=== PATIENT | male | born 1965 | race American Indian/Alaskan Native ===

== ENCOUNTER 2016-10-26 21:35 | Emergency (ER) | payer MEDICAID, OTHER ==
[~2016-10-26] VITALS: Ht 170.2 cm; Wt 72.8 kg
[~2016-10-26 21:35] MED LIST: CITA10TA8 PO
[2016-10-26] MEDS ORDERED: HYDR25CA PO (21:46)
[2016-10-26 23:22] VITALS: BP 114/81
== END 2016-10-26 23:24 | disposition home or self-care (01) ==
LOC: ED 22:11
DX: S00.83XA Contusion of other part of head, initial encounter (principal); S00.33XA Contusion of nose, initial encounter; S00.531A Contusion of lip, initial encounter; F10.120 Alcohol abuse with intoxication, uncomplicated; W10.8XXA Fall (on) (from) other stairs and steps, initial encounter; Y93.89 Activity, other specified; Y92.098 Other place in other non-institutional residence as the place of occurrence of the external cause; Y99.8 Other external cause status
CPT/HCPCS: 70450; 70486; 72125; 99284

== ENCOUNTER 2017-05-04 02:04 | Emergency (ER) | payer MEDICAID ==
[~2017-05-04] VITALS: Ht 170.2 cm; Wt 70.0 kg
[~2017-05-04 02:04] MED LIST changes: +HYDR25CA PO
== END 2017-05-04 02:54 | disposition left against medical advice (07) ==
LOC: ED 02:38
DX: F10.129 Alcohol abuse with intoxication, unspecified (principal); Z53.21 Procedure and treatment not carried out due to patient leaving prior to being seen by health care provider

== ENCOUNTER 2017-10-18 05:51 | Emergency (ER) | payer MEDICAID ==
[~2017-10-18] VITALS: Ht 172.7 cm; Wt 78.0 kg
[2017-10-18 06:02] VITALS: BP 134/78
[2017-10-18] MEDS ORDERED: DIPH,PERTUSS(ACELL),TET VAC/PF 0.5 ML IM-VACC ONE ×2 (06:30→08:50)
[2017-10-18] MEDS ORDERED: LIDOCAINE-MPF 2% ,5ML ONE (07:37)
[2017-10-18] MEDS ORDERED: LIDOCAINE-MPF 1%, 5ML INFIL ONE (08:00)
== END 2017-10-18 09:05 | disposition home or self-care (01) ==
LOC: ED 09:03
DX: S01.112A Laceration without foreign body of left eyelid and periocular area, initial encounter (principal); Y04.0XXA Assault by unarmed brawl or fight, initial encounter; Y93.89 Activity, other specified; Y92.410 Unspecified street and highway as the place of occurrence of the external cause; Y99.8 Other external cause status
CPT/HCPCS: 12051; 70450; 72125; 90471; 90715

== ENCOUNTER 2017-12-25 20:17 | Emergency (ER) | payer MEDICAID ==
[~2017-12-25] VITALS: Ht 162.6 cm; Wt 65.8 kg
[2017-12-25] MEDS ORDERED: methylPREDNISolone SOD SUCC 125 MG/2 ML ONE (21:11)
[2017-12-25] MEDS ORDERED: EPINEPHRINE 1 MG/ML, 1ML ONE (21:11)
[2017-12-25] MEDS ORDERED: FAMOTIDINE 20 MG/2 ML ONE (21:11)
[2017-12-25 22:35] VITALS: BP 141/88
== END 2017-12-25 23:20 | disposition home or self-care (01) ==
LOC: ED 21:02
DX: F10.220 Alcohol dependence with intoxication, uncomplicated (principal); F12.10 Cannabis abuse, uncomplicated; F17.210 Nicotine dependence, cigarettes, uncomplicated
CPT/HCPCS: 99283

== ENCOUNTER 2017-12-26 19:27 | Observation (INO) | payer MEDICAID ==
[~2017-12-26] VITALS: Ht 170.2 cm; Wt 70.9 kg
[2017-12-26 20:08] LABS: BASOPHILS # (AUTO) 0.05 x10^3/uL (0-0.1); BASOPHILS % (AUTO) 1 % (0-1); EOSINOPHILS # (AUTO) 0.04 x10^3/uL (0-0.4); EOSINOPHILS % (AUTO) 1 % (1-7); LYMPHOCYTES # (AUTO) 1.36 x10^3/uL (1-3.4); LYMPHOCYTES % (AUTO) 22 % (22-44); MD NO; MEAN CORPUSCULAR HGB CONC 33.5 g/dL (33.2-36.2); MEAN CORPUSCULAR VOLUME 89.4 fL (81-97); MEAN PLATELET VOLUME 7.9 fL (7.4-10.4); MONOCYTES # (AUTO) 0.38 x10^3/uL (0.2-0.8); MONOCYTES % (AUTO) 6 % (2-9); NEUTROPHILS # (AUTO) 4.38 x10^3/uL (1.8-6.8); NEUTROPHILS % (AUTO) 71 % (42-75); PLATELET COUNT 252 x10^3/uL (130-400); RED CELL DISTRIBUTION WIDTH 13.6 % (9.4-14.8)
[2017-12-26 20:20] LABS: ANION GAP 8 mmol/L (5-15); CALCIUM 8.1 mg/dL (8.5-10.1); CHLORIDE 114 mmol/L (98-107); CREATININE 1.38 mg/dL (0.7-1.3)
[2017-12-26 20:21] LABS: ALANINE AMINOTRANSFERASE 24 U/L (12-78); ALBUMIN 3.8 g/dL (3.4-5.0)
[2017-12-26 20:22] LABS: ALKALINE PHOSPHATASE 104 U/L (45-117); BILIRUBIN,TOTAL 0.6 mg/dL (0.2-1.0); SALICYLATE LEVEL < 1.7 mg/dL (2.8-20.0); TOTAL PROTEIN 7.6 g/dL (6.4-8.2)
[2017-12-26 20:23] LABS: ACETAMINOPHEN < 2 mcg/mL (10-30)
[2017-12-26 21:15] LABS: AMPHETAMINE SCREEN, URINE Negative (Negative); BARBITURATE SCREEN, URINE Negative (Negative); BENZODIAZEPINE SCREEN, URINE Positive (Negative); CANNABINOID SCREEN, URINE Negative (Negative); COCAINE SCREEN, URINE Negative (Negative); METHADONE SCREEN, URINE Negative (Negative); OPIATE SCREEN, URINE Negative (Negative)
[2017-12-27] MEDS ORDERED: DOCUSATE 100 MG CAPSULE PO PRN (05:00)
[2017-12-27] MEDS ORDERED: LORazepam 2 MG/ML, 1ML IM PRN ×2 (05:00)
[2017-12-27] MEDS ORDERED: BACLOFEN 10 MG TABLET PO PRN (05:00)
[2017-12-27] MEDS ORDERED: LORazepam 1MG TABLET ONE (05:01)
[2017-12-27] MEDS ORDERED: ONDANSETRON ODT 4 MG ONE (05:05)
[2017-12-27] MEDS: ONDANSETRON ODT 4 MG PO PRN ×3 (05:06→19:40)
[2017-12-27] MEDS: LORazepam 1MG TABLET PO PRN ×2 (05:06→11:16)
[2017-12-27] MEDS ORDERED: FLUO20CA19 PO (09:29)
[2017-12-27] MEDS: FLUOXETINE HCL 20 MG CAPSULE PO SCH (10:16)
[2017-12-27] MEDS ORDERED: FLUOXETINE HCL 20 MG CAPSULE ONE (10:16)
[2017-12-27 11:37] LABS: MICROSCOPIC NOT IND
[2017-12-27 11:50] LABS: CULTURE INDICATED? NO
[2017-12-27] MEDS ORDERED: HALOPERIDOL 5 MG/ML IM PRN (13:00)
[2017-12-27] MEDS ORDERED: HALOPERIDOL 5 MG TABLET PO PRN (13:00)
[2017-12-27 19:24] VITALS: BP 125/73
[2017-12-27] MEDS: HYDROXYZINE PAMOATE 50MG CAP PO SCH (21:26)
[2017-12-28 08:43] VITALS: BP 113/68
[2017-12-28] MEDS: FLUOXETINE HCL 20 MG CAPSULE PO SCH (09:58)
[2017-12-28] MEDS: LORazepam 1MG TABLET PO PRN (10:14)
[2017-12-28 19:40] VITALS: BP 112/63
[2017-12-28] MEDS: HYDROXYZINE PAMOATE 50MG CAP PO SCH (21:24)
[2017-12-29 08:06] VITALS: BP 112/72
[2017-12-29] MEDS: FLUOXETINE HCL 20 MG CAPSULE PO SCH (08:58)
[2017-12-29 19:57] VITALS: BP 133/80
[2017-12-29] MEDS: HYDROXYZINE PAMOATE 50MG CAP PO SCH (20:19)
[2017-12-30 08:45] VITALS: BP 112/58
[2017-12-30] MEDS: FLUOXETINE HCL 20 MG CAPSULE PO SCH (09:31)
== END 2017-12-30 17:00 ==
LOC: ED 22:00 → EDIP 12-27 04:19 → 2N 12-27 10:29
PROVIDERS: ADMIT Internal Medicine; ATTEND Internal Medicine
DX: R45.851 Suicidal ideations (principal); F32.9 Major depressive disorder, single episode, unspecified; F41.9 Anxiety disorder, unspecified; F10.229 Alcohol dependence with intoxication, unspecified; F12.10 Cannabis abuse, uncomplicated; F15.10 Other stimulant abuse, uncomplicated; F17.200 Nicotine dependence, unspecified, uncomplicated; F41.1 Generalized anxiety disorder; Z59.0 Homelessness; Z81.1 Family history of alcohol abuse and dependence; Z91.5 Personal history of self-harm
CPT/HCPCS: 36415; 80053; 80307; 80329; 81003; 85025; 93005; 99285; G0378; Q0162; G0480

== ENCOUNTER 2018-11-05 02:33 | Inpatient (IN) | payer MEDICAID ==
[~2018-11-05] VITALS: Ht 170.2 cm; Wt 86.9 kg
[~2018-11-05 02:33] MED LIST changes: +FLUO20CA19 PO
--- NOTE | 2018-11-05 02:55 | NUR ---
PT IN HOSPITAL GOWN. PT BELONGINGS TAGGED AND PLACED IN CLOSET. PT ON REGISTERED APPRAISER AND VITALS MONITORS. LAB IN AT THIS TIME TO DRAW BLOOD. EKG DONE. WILL CONTINUE TO MONITOR. BILAT BEDRAILS UP. CALL LIGHT WITHIN REACH.
[2018-11-05 03:07] LABS: BASOPHILS # (AUTO) 0.02 x10^3/uL (0-0.1); BASOPHILS % (AUTO) 0 % (0-1); EOSINOPHILS # (AUTO) 0.02 x10^3/uL (0-0.4); EOSINOPHILS % (AUTO) 0 % (1-7); LYMPHOCYTES # (AUTO) 1.82 x10^3/uL (1-3.4); LYMPHOCYTES % (AUTO) 30 % (22-44); MD NO; MEAN CORPUSCULAR HEMOGLOBIN 30.2 pg (27.5-34.5); MEAN CORPUSCULAR HGB CONC 33.8 g/dL (33.2-36.2); MEAN CORPUSCULAR VOLUME 89.3 fL (81-97); MEAN PLATELET VOLUME 8.1 fL (7.4-10.4); MONOCYTES # (AUTO) 0.57 x10^3/uL (0.2-0.8); MONOCYTES % (AUTO) 9 % (2-9); NEUTROPHILS # (AUTO) 3.75 x10^3/uL (1.8-6.8); NEUTROPHILS % (AUTO) 61 % (42-75); PLATELET COUNT 231 x10^3/uL (130-400); RED BLOOD COUNT 4.65 x10^6/uL (4.38-5.82); RED CELL DISTRIBUTION WIDTH 13.1 % (9.4-14.8)
[2018-11-05 03:16] LABS: ALANINE AMINOTRANSFERASE 70 U/L (12-78); ALBUMIN 4.1 g/dL (3.4-5.0); ANION GAP 9 mmol/L (5-15); CALCIUM 8.2 mg/dL (8.5-10.1); CHLORIDE 109 mmol/L (98-107); CREATININE 1.31 mg/dL (0.7-1.3)
[2018-11-05 03:18] LABS: ALKALINE PHOSPHATASE 87 U/L (45-117); BILIRUBIN,TOTAL 0.5 mg/dL (0.2-1.0); TOTAL PROTEIN 7.3 g/dL (6.4-8.2)
[2018-11-05 03:29] LABS: SALICYLATE LEVEL < 1.7 mg/dL (2.8-20.0)
--- NOTE | 2018-11-05 03:58 | NUR ---
PT PULLED OFF ALL MONITORS. MONITORS REPLACED. PT HAS URINAL AT BEDSIDE TO COLLECT URINE SAMPLE. SITTER AT BEDSIDE. PT MEDS TAKEN TO PHARMACY FOR STORAGE.
[2018-11-05] MEDS: SODIUM CHLORIDE 0.9% 1,000 ML IV SCH ×3 (04:30→20:25)
--- NOTE | 2018-11-05 04:33 | NUR ---
IV STARTED. PT GIVEN BLANKET AND ENCOURAGED TO SLEEP HE IS FLIRTING WITH ALL FEMALE STAFF. VSS AT THIS TIME. WILL CONTINUE TO MONITOR. ORDERED FLUIDS INFUSING.
--- NOTE | 2018-11-05 04:47 | NUR ---
REPORT TO HENRRY LOMELI FOR ROOM 404-2.
[2018-11-05 05:20] VITALS: BP 103/63
[2018-11-05] MEDS ORDERED: TRAZ150T62 PO (06:29)
[2018-11-05] MEDS ORDERED: VENL150C PO (06:29)
[2018-11-05] MEDS ORDERED: ARIP10TA33 PO (06:29)
[2018-11-05 07:05] VITALS: BP 101/61
[2018-11-05 07:43] LABS: AMPHETAMINE SCREEN, URINE Negative (Negative); BARBITURATE SCREEN, URINE Negative (Negative); BENZODIAZEPINE SCREEN, URINE Negative (Negative); CANNABINOID SCREEN, URINE Positive (Negative); COCAINE SCREEN, URINE Negative (Negative); METHADONE SCREEN, URINE Negative (Negative); OPIATE SCREEN, URINE Negative (Negative)
[2018-11-05 15:50] VITALS: BP 112/66
[2018-11-05 18:13] LABS: TROPONIN I < 0.015 ng/mL (0.000-0.045)
[2018-11-05 18:59] VITALS: BP 119/73
[2018-11-05 23:25] LABS: TROPONIN I < 0.015 ng/mL (0.000-0.045)
[2018-11-06 01:21] VITALS: BP 111/72
[2018-11-06] MEDS: SODIUM CHLORIDE 0.9% 1,000 ML IV SCH ×2 (04:29→12:19)
[2018-11-06 05:43] LABS: ANION GAP 5 mmol/L (5-15); CHLORIDE 112 mmol/L (98-107)
[2018-11-06 05:49] LABS: BASOPHILS # (AUTO) 0.02 x10^3/uL (0-0.1); BASOPHILS % (AUTO) 0 % (0-1); EOSINOPHILS # (AUTO) 0.04 x10^3/uL (0-0.4); EOSINOPHILS % (AUTO) 1 % (1-7); LYMPHOCYTES # (AUTO) 1.57 x10^3/uL (1-3.4); LYMPHOCYTES % (AUTO) 33 % (22-44); MD NO; MEAN CORPUSCULAR HEMOGLOBIN 29.2 pg (27.5-34.5); MEAN CORPUSCULAR HGB CONC 32.6 g/dL (33.2-36.2); MEAN CORPUSCULAR VOLUME 89.7 fL (81-97); MEAN PLATELET VOLUME 7.9 fL (7.4-10.4); MONOCYTES % (AUTO) 8 % (2-9); NEUTROPHILS # (AUTO) 2.79 x10^3/uL (1.8-6.8); NEUTROPHILS % (AUTO) 58 % (42-75); PLATELET COUNT 182 x10^3/uL (130-400); RED BLOOD COUNT 4.04 x10^6/uL (4.38-5.82); RED CELL DISTRIBUTION WIDTH 13.7 % (9.4-14.8)
[2018-11-06 05:53] LABS: CREATININE 0.97 mg/dL (0.7-1.3); TROPONIN I < 0.015 ng/mL (0.000-0.045)
[2018-11-06 08:37] VITALS: BP 135/78
[2018-11-06 13:20] VITALS: BP 128/74
[2018-11-06 19:01] VITALS: BP 150/84
[2018-11-07] MEDS: SODIUM CHLORIDE 0.9% 1,000 ML IV SCH ×2 (00:02→08:22)
[2018-11-07 00:12] VITALS: BP 133/75
[2018-11-07 03:17] VITALS: BP 137/77
[2018-11-07 03:54] LABS: ALBUMIN 3.1 g/dL (3.4-5.0); ANION GAP 3 mmol/L (5-15); CALCIUM 8.3 mg/dL (8.5-10.1); CHLORIDE 111 mmol/L (98-107); CREATININE 0.89 mg/dL (0.7-1.3)
[2018-11-07 03:56] LABS: ALANINE AMINOTRANSFERASE 46 U/L (12-78); ALKALINE PHOSPHATASE 77 U/L (45-117); BILIRUBIN,TOTAL 0.4 mg/dL (0.2-1.0); TOTAL PROTEIN 6.2 g/dL (6.4-8.2)
[2018-11-07 09:30] VITALS: BP 142/81
[2018-11-07 12:25] VITALS: BP 151/85
== END 2018-11-07 16:10 | disposition home or self-care (01) | DRG 918 ==
LOC: ED 03:21 → EDIP 04:02 → 4WST 05:13 → DCLOUNGE 11-07 16:04
PROVIDERS: ADMIT Internal Medicine; ATTEND Internal Medicine
DX: T43.212A Poisoning by selective serotonin and norepinephrine reuptake inhibitors, intentional self-harm, initial encounter (principal); F10.24 Alcohol dependence with alcohol-induced mood disorder; F41.8 Other specified anxiety disorders; F10.220 Alcohol dependence with intoxication, uncomplicated; Y90.8 Blood alcohol level of 240 mg/100 ml or more; F12.10 Cannabis abuse, uncomplicated; I95.9 Hypotension, unspecified; F17.200 Nicotine dependence, unspecified, uncomplicated; I44.4 Left anterior fascicular block; I45.81 Long QT syndrome; Z59.0 Homelessness; Y92.89 Other specified places as the place of occurrence of the external cause; Z81.1 Family history of alcohol abuse and dependence; Z91.5 Personal history of self-harm
CPT/HCPCS: 36415; 80048; 80053; 80307; 82140; 83735; 84484; 85025; 93005; 93306; G0378; J7030

== ENCOUNTER 2018-11-11 02:01 | Emergency (ER) | payer MEDICAID ==
[~2018-11-11] VITALS: Ht 172.7 cm; Wt 86.0 kg
[~2018-11-11 02:01] MED LIST changes: +ARIP10TA33 PO; +TRAZ150T62 PO; +VENL150C PO
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
[2018-11-11 04:22] VITALS: BP 111/64
== END 2018-11-11 04:37 | disposition home or self-care (01) ==
LOC: ED 04:31
DX: Z04.6 Encounter for general psychiatric examination, requested by authority (principal); F41.9 Anxiety disorder, unspecified; F32.9 Major depressive disorder, single episode, unspecified
CPT/HCPCS: 99283

== ENCOUNTER 2018-11-13 10:08 | Emergency (ER) | payer MEDICAID ==
[~2018-11-13] VITALS: Ht 170.2 cm; Wt 72.7 kg
[2018-11-13 10:22] VITALS: BP 156/89
[2018-11-13] MEDS ORDERED: LORazepam 1MG TABLET PO ONE (10:30)
[2018-11-13] MEDS ORDERED: VENLAFAXINE XR 37.5MG CAP.ER.24H PO SCH (10:30)
[2018-11-13] MEDS ORDERED: PLEASE ENTER HEIGHT AND WEIGHT MC SCH (10:30)
--- NOTE | 2018-11-13 10:32 | NUR ---
PT HERE FOR SI, BELONGINGS REMOVED AND LOCKED UP FOR SAFE KEEPING, SITTER AT BEDSIDE. PT PROVIDED SPRITE TO DRINK PER HIS REQUEST.
[2018-11-13] MEDS ORDERED: LORazepam 1MG TABLET ONE (10:49)
--- NOTE | 2018-11-13 11:08 | NUR ---
BEDSIDE REORT FROM EDUARDO LOMELI, PT RESTING IN [facility], SITTER AT BEDSIDE, PROVIDED SPRITE, DOES NOT WANT ANY FOOD. AWAITING TELEPSYCH CONSULT.
--- NOTE | 2018-11-13 12:06 | NUR ---
PT GIVEN LUNCH TRAY, PT RESTING IN [place]. UP FOR DC
== END 2018-11-13 12:17 | disposition home or self-care (01) ==
LOC: ED 11:17
DX: F33.9 Major depressive disorder, recurrent, unspecified (principal); R45.851 Suicidal ideations
CPT/HCPCS: 99284

== ENCOUNTER 2020-03-15 14:59 | Inpatient (IN) | payer MEDICAID ==
[~2020-03-15] VITALS: Ht 172.7 cm; Wt 84.4 kg
[2020-03-15] MEDS ORDERED: ACETAMINOPHEN 325 MG TABLET ONE (15:53)
[2020-03-15] MEDS ORDERED: ACETAMINOPHEN 325 MG TABLET PO ONE (16:00)
--- NOTE | 2020-03-15 16:09 | NUR ---
PT STATES HE WENT TO [facility] TO GET HELP FOR DETOX AND MENTAL HEALTH. THEY RPT'D A TEMP OF 101.0 AND SENT PT TO THE EMERGENCY ROOM. PT VSS, AND RPTS NO COMPLAINTS FOR SOB, COUGH, LOSS OR TASTE OR SMELL. PT MED NOTED. DR. CARRASCO AT BEDSIDE, POC DISCUSSED AND QUESTIONS ANSWERED. MONITORS IN PLACE, CALL LIGHT W/I REACH.
[2020-03-15 16:23] LABS: ALANINE AMINOTRANSFERASE 82 U/L (12-78); ANION GAP 9 mmol/L (5-15); CALCIUM 8.6 mg/dL (8.5-10.1); CHLORIDE 100 mmol/L (98-107); CREATININE 1.06 mg/dL (0.7-1.3)
[2020-03-15 16:24] LABS: BASOPHILS % (AUTO) 0 % (0-1); EOSINOPHILS % (AUTO) 0 % (1-7); LYMPHOCYTES % (AUTO) 21 % (22-44); MEAN CORPUSCULAR HEMOGLOBIN 27.9 pg (27.5-34.5); MEAN CORPUSCULAR HGB CONC 33.7 g/dL (33.2-36.2); MEAN PLATELET VOLUME 7.5 fL (7.4-10.4); MONOCYTES % (AUTO) 9 % (2-9); NEUTROPHILS % (AUTO) 70 % (42-75); PLATELET COUNT 236 x10^3/uL (130-400); RED BLOOD COUNT 4.91 x10^6/uL (4.38-5.82); RED CELL DISTRIBUTION WIDTH 15.6 % (9.4-14.8)
[2020-03-15 16:26] LABS: ALKALINE PHOSPHATASE 159 U/L (45-117); BILIRUBIN,TOTAL 1.1 mg/dL (0.2-1.0); TOTAL PROTEIN 7.6 g/dL (6.4-8.2)
[2020-03-15 16:28] LABS: MD NO
--- NOTE | 2020-03-15 17:28 | NUR ---
REPEAT TEMP 99.1, VSS, CHART UP FOR RECHECK
[2020-03-15] MEDS ORDERED: CEFTRIAXONE 1,000 MG ONE (18:53)
--- NOTE | 2020-03-15 18:56 | NUR ---
BEDSIDE REPORT RECIEVED FROM SUZETTE LOMELI. ERP AT BEDSIDE FOR DANELLE IBARRA
--- NOTE | 2020-03-15 18:59 | NUR ---
PT TO BE D/C TO COVID HOUSING AFTER ANTIBIOTICS. BEDSIDE SBAR RPT TO ARMANI SWEENEY.
[2020-03-15] MEDS ORDERED: CEFTRIAXONE 1,000 MG IM ONE (19:00)
[2020-03-15] MEDS ORDERED: AZITHROMYCIN 500 MG TABLET PO ONE (19:00)
[2020-03-15] MEDS ORDERED: LIDOCAINE-MPF 1%, 5ML ONE (19:11)
[2020-03-15] MEDS ORDERED: AZITHROMYCIN 500 MG TABLET ONE (19:11)
--- NOTE | 2020-03-15 19:44 | NUR ---
PT MEDICATED PER EMAR, PT PROVIDED URINAL, AND [employer] HOUSING PAPERS SCANNED OVER, AWAITING CALL BACK.
--- NOTE | 2020-03-15 21:46 | NUR ---
PT RESTING IN [facility], GIVEN SOME CEREAL AND JUICE PER REQUEST
[2020-03-15] MEDS ORDERED: SODIUM CHLORIDE FLUSH 10ML SYR IVF ONE (22:30)
[2020-03-15] MEDS ORDERED: THIAMINE 100 MG in SODIUM CHLORIDE 0.9% 50 ML IVPB ONE (22:30)
[2020-03-15] MEDS ORDERED: LORazepam 2 MG/ML, 1ML IVPush PRN (22:30)
[2020-03-15] MEDS ORDERED: SODIUM CHLORIDE 0.9% 1,000ML IVBOLUS ONE (22:30)
[2020-03-15] MEDS ORDERED: SODIUM CHLORIDE 0.9% 1,000 ML IV ONE (22:30)
[2020-03-15] MEDS ORDERED: DEXAMETHASONE 4 MG/ML, 1ML ONE (22:46)
--- NOTE | 2020-03-15 22:56 | NUR ---
PT MEDICATED PER EMAR, PT HAD BM EARLIER, AND AWAITING IV THIAMINE FROM PHARMACY
--- NOTE | 2020-03-15 22:57 | NUR ---
PT STATES HE HAS NOT TAKEN ANY HOME MEDS IN A LOT TIME.
[2020-03-15] MEDS ORDERED: DOCUSATE 100 MG CAPSULE PO PRN (23:00)
[2020-03-15] MEDS ORDERED: GUAIFENESIN/DM 200-20MG, 10ML UDC PO PRN (23:00)
[2020-03-15] MEDS ORDERED: DEXAMETHASONE 4 MG/ML, 1ML IVPush SCH (23:00)
[2020-03-15] MEDS ORDERED: LABETALOL 5MG/ML, 20ML IVPush PRN (23:00)
[2020-03-15 23:19] LABS: C-REACTIVE PROTEIN, QUANT 9.03 mg/dL (0.02-0.49)
[2020-03-15] MEDS ORDERED: HEPARIN 5,000 UNITS/ML, 1ML ONE (23:33)
[2020-03-15] MEDS: HEPARIN 5,000 UNITS/ML, 1ML SQ SCH (23:37)
[2020-03-15 23:41] LABS: D-DIMER (DIC) 0.6 ug/mlFEU (0.00-0.52); PROTIME 10.3 Seconds (9.6-11.5)
--- NOTE | 2020-03-16 01:04 | NUR ---
REPORT GIVEN TO ARMANI LI
[2020-03-16 02:34] VITALS: BP 126/89
[2020-03-16 08:00] VITALS: BP 127/81
[2020-03-16 08:42] LABS: BASOPHILS % (AUTO) 1 % (0-1); EOSINOPHILS % (AUTO) 0 % (1-7); LYMPHOCYTES % (AUTO) 15 % (22-44); MEAN CORPUSCULAR HEMOGLOBIN 27.8 pg (27.5-34.5); MEAN CORPUSCULAR HGB CONC 33.2 g/dL (33.2-36.2); MEAN PLATELET VOLUME 7.6 fL (7.4-10.4); MONOCYTES % (AUTO) 7 % (2-9); NEUTROPHILS % (AUTO) 78 % (42-75); PLATELET COUNT 250 x10^3/uL (130-400); RED BLOOD COUNT 4.48 x10^6/uL (4.38-5.82); RED CELL DISTRIBUTION WIDTH 15.8 % (9.4-14.8)
[2020-03-16 08:55] LABS: ALANINE AMINOTRANSFERASE 69 U/L (12-78); ALBUMIN 2.4 g/dL (3.4-5.0); ANION GAP 5 mmol/L (5-15); CALCIUM 8.4 mg/dL (8.5-10.1); CHLORIDE 108 mmol/L (98-107); CREATININE 0.77 mg/dL (0.7-1.3)
[2020-03-16 08:57] LABS: ALKALINE PHOSPHATASE 139 U/L (45-117); BILIRUBIN,TOTAL 0.6 mg/dL (0.2-1.0); TOTAL PROTEIN 6.6 g/dL (6.4-8.2)
[2020-03-16] MEDS ORDERED: DEXAMETHASONE 4 MG/ML, 1ML IVPush SCH (09:00)
[2020-03-16 09:03] LABS: MD NO
[2020-03-16] MEDS: HEPARIN 5,000 UNITS/ML, 1ML SQ SCH ×2 (09:31→16:25)
[2020-03-16] MEDS: MULTIVITAMINS/MINERALS TABLET PO SCH (14:03)
[2020-03-16 14:15] VITALS: BP 118/69
[2020-03-16] MEDS: CEFTRIAXONE PMX 1GM/50ML 50 ML IV SCH (19:59)
[2020-03-16 20:17] VITALS: BP 134/84
[2020-03-16] MEDS: AZITHROMYCIN 500 MG in SODIUM CHLORIDE 0.9% 250 ML IV SCH (21:08)
[2020-03-17] MEDS: HEPARIN 5,000 UNITS/ML, 1ML SQ SCH ×3 (00:30→18:03)
[2020-03-17 01:29] VITALS: BP 134/81
[2020-03-17 08:43] VITALS: BP 125/80
[2020-03-17] MEDS: MULTIVITAMINS/MINERALS TABLET PO SCH (09:34)
[2020-03-17 13:49] VITALS: BP 142/91
[2020-03-17] MEDS: ACETAMINOPHEN 325 MG TABLET PO PRN (16:52)
[2020-03-17 18:55] VITALS: BP 124/84
[2020-03-17] MEDS: CEFTRIAXONE PMX 1GM/50ML 50 ML IV SCH (20:07)
[2020-03-17] MEDS: AZITHROMYCIN 500 MG in SODIUM CHLORIDE 0.9% 250 ML IV SCH (21:03)
[2020-03-18 01:02] VITALS: BP 133/90
[2020-03-18] MEDS: HEPARIN 5,000 UNITS/ML, 1ML SQ SCH ×3 (01:16→18:42)
[2020-03-18 09:31] VITALS: BP 112/81
[2020-03-18] MEDS: ACETAMINOPHEN 325 MG TABLET PO PRN ×2 (09:36→21:21)
[2020-03-18] MEDS: MULTIVITAMINS/MINERALS TABLET PO SCH (09:36)
[2020-03-18] MEDS ORDERED: CHOL10003 PO (13:34)
[2020-03-18] MEDS ORDERED: CEFD300C37 PO (13:34)
[2020-03-18] MEDS ORDERED: ZINC220C7 PO (13:34)
[2020-03-18] MEDS ORDERED: AZIT500T10 PO (13:34)
[2020-03-18] MEDS ORDERED: ASCO100018 PO (13:34)
[2020-03-18 15:39] VITALS: BP 118/84
[2020-03-18] MEDS: FLUOXETINE HCL 20 MG CAPSULE PO SCH (18:41)
[2020-03-18] MEDS: ARIPIPRAZOLE 10 MG TABLET PO SCH (18:42)
[2020-03-18 18:46] VITALS: BP 128/90
[2020-03-18] MEDS ORDERED: TRAZODONE 100MG TABLET PO PRN (21:00)
[2020-03-18] MEDS: CEFTRIAXONE PMX 1GM/50ML 50 ML IV SCH (21:09)
[2020-03-18] MEDS: AZITHROMYCIN 500 MG in SODIUM CHLORIDE 0.9% 250 ML IV SCH (21:50)
[2020-03-19 00:49] VITALS: BP 119/87
[2020-03-19] MEDS: HEPARIN 5,000 UNITS/ML, 1ML SQ SCH ×2 (02:03→09:22)
[2020-03-19 07:58] VITALS: BP 115/79
[2020-03-19] MEDS: MULTIVITAMINS/MINERALS TABLET PO SCH (09:22)
[2020-03-19] MEDS: ARIPIPRAZOLE 10 MG TABLET PO SCH (09:22)
[2020-03-19] MEDS: FLUOXETINE HCL 20 MG CAPSULE PO SCH (09:22)
[2020-03-19] MEDS ORDERED: FLUO20CA19 PO (12:56)
[2020-03-19] MEDS ORDERED: ARIP10TA33 PO (12:56)
[2020-03-19] MEDS ORDERED: TRAZ50TA66 PO (12:56)
[2020-03-19 14:31] VITALS: BP 119/82
== END 2020-03-19 15:00 | disposition home or self-care (01) | DRG 177 ==
LOC: ED 20:10 → EDIP 22:37 → 3N 03-16 02:20
PROVIDERS: ADMIT Family Medicine; ATTEND Internal Medicine
DX: U07.1 COVID-19 (principal); J12.89 Other viral pneumonia; J15.9 Unspecified bacterial pneumonia; F10.239 Alcohol dependence with withdrawal, unspecified; F10.24 Alcohol dependence with alcohol-induced mood disorder; D70.9 Neutropenia, unspecified; F32.9 Major depressive disorder, single episode, unspecified; F41.9 Anxiety disorder, unspecified; Z79.899 Other long term (current) drug therapy; Z79.891 Long term (current) use of opiate analgesic; Z79.01 Long term (current) use of anticoagulants; Z59.0 Homelessness; Z81.1 Family history of alcohol abuse and dependence; Z84.89 Family history of other specified conditions
CPT/HCPCS: 36415; 71045; 80053; 80307; 82728; 83605; 83615; 84145; 85025; 85049; 85379; 85384; 85610; 85730; 86140; 87040; 87635; 96372; 99285; G0378; J0456; J0696; J1100; J1644; J3411; J7030; J7050

== ENCOUNTER 2020-06-09 19:56 | Emergency (ER) | payer MEDICAID ==
[~2020-06-09] VITALS: Ht 170.2 cm; Wt 75.0 kg
[~2020-06-09 19:56] MED LIST changes: +ASCO100018 PO; +AZIT500T10 PO; +CEFD300C37 PO; +CHOL10003 PO; +TRAZ50TA66 PO; +ZINC220C7 PO
[2020-06-09 20:01] VITALS: BP 145/89
--- NOTE | 2020-06-09 20:11 | NUR ---
PT AMBULATES TO ROOM FROM TRIAGE. PT STATES HE IS HERE BECAUSE HE IS TIRED. PT SMELLS OF ALCOHOL AND STATES "I HAVEN'T DRANK ENOUGH" WHEN ASKED HOW MUCH HE HAS HAD TO DRINK TODAY. PT RESTING IN [place] AT THIS TIME, WILL CONTINUE TO MONITOR.
--- NOTE | 2020-06-09 20:46 | NUR ---
PT AMBULAED DOWN HALLWAY AND BACK TO ROOM. STEADY WITH STAND BY ASSISTANCE.
--- NOTE | 2020-06-09 21:55 | NUR ---
PT AMBULATED STEADILY TO LOBBY. PT PROVIDED MEAL TRAY AND BUS PASS.
== END 2020-06-09 21:57 | disposition home or self-care (01) ==
LOC: ED 20:58
DX: F10.220 Alcohol dependence with intoxication, uncomplicated (principal); F15.10 Other stimulant abuse, uncomplicated; F12.10 Cannabis abuse, uncomplicated; F17.210 Nicotine dependence, cigarettes, uncomplicated; Z72.9 Problem related to lifestyle, unspecified; Y90.0 Blood alcohol level of less than 20 mg/100 ml
CPT/HCPCS: 99281; 99406

== ENCOUNTER 2020-08-20 22:02 | Emergency (ER) | payer MEDICAID ==
[~2020-08-20] VITALS: Ht 170.2 cm; Wt 74.0 kg
--- NOTE | 2020-08-21 02:50 | NUR ---
RECEIVED REPORT AND PT AT THIS TIME. PT MTF AND AWAKENS AND HAS CONVERSATION WITH RN, BUT STILL MILDLY SLURRED SPEECH. USING URINAL WHILE IN BED. PTS BELONGINGS IN TWO BAGS AT BEDSIDE. PT ON O2 SAT MONITOR AND BP CUFF. RESTING COMFORTABLY IN BED WITH SIDERAILS UP X2 AND CALL LIGHT WITHIN REACH.
--- NOTE | 2020-08-21 03:22 | NUR ---
PT MOVED TO ROOM 16
--- NOTE | 2020-08-21 03:36 | NUR ---
pt woke up and asked for water. glass of water provided and pt also asked to stand up and see how he feels. pt states he feels he's ready to go. pair of pants from the used clothes closet procured for pt, as his pants are very soiled. f/u and d/c instructions given to pt and he v/u.
[2020-08-21 03:37] VITALS: BP 124/80
--- NOTE | 2020-08-21 03:51 | NUR ---
PT AWAKE AND AMBULATING IN ROOM AND GETTING DRESSED. [employer]I PANTS PROVIDED TO PT AND HE IS WEARING THEM AND THANKFUL. PT GATHERING HIS BELONGINGS AND GIVEN F/U AND D/C INSTRUCTIONS AND V/U.
== END 2020-08-21 03:58 | disposition home or self-care (01) ==
LOC: ED 22:23
DX: F10.220 Alcohol dependence with intoxication, uncomplicated (principal); Z72.9 Problem related to lifestyle, unspecified; Y90.0 Blood alcohol level of less than 20 mg/100 ml
CPT/HCPCS: 99283